=== PATIENT | male | born 1960 | race Caucasian/White ===

== ENCOUNTER 2021-09-08 08:37 | Observation (INO) | payer OTHER ==
[~2021-09-08] VITALS: Ht 170.2 cm; Wt 80.0 kg
--- NOTE | 2021-09-08 09:19 | PHYS DOC ---
General Adult EDM: Chief Complaint: DIZZY/LIGHT HEADED HPI: HPI: Patient is a 61 year old male with history of HTN, HLD, recent Covid infection on 08/22 (ended isolation on 08/30) who presents with vertigo. Had a sensation of room spinning when he woke up at approximately 10:30 PM last night. Has been constant since. Has worsened with head movements. He states that he has had several months of diplopia, and has seen an optometri st for this in his home state of [place]. 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 States he is also had drooping of his left eyelid for many years, but has been worse over the past 4 months. Denies speech difficulty, numbness, upper/lower extremity weakness, or coordination difficulty. States he does have a hoarse voice, but attributes this to his recent Covid infection and states that his voice has been hoarse for many years. He is a smoker. No history of atrial fibrillation. Denies having any imaging of his head since onset of his double vision. Review of Systems: Review of Systems: Constitutional: Denies fever or chills. [] Eyes: Denies change in visual acuity. [] HENT: Denies nasal congestion or sore throat. [] Respiratory: Denies cough or shortness of breath. [] Cardiovascular: Denies chest pain or edema. [] GI: Denies abdominal pain, nausea, vomiting, bloody stools or diarrhea. [] : Denies dysuria. [] Musculoskeletal: Denies back pain or joint pain. [] Integument: Denies rash. [] Neurologic: Reports double vision, vertigo. Endocrine: Denies polyuria or polydipsia. [] Lymphatic: Denies swollen glands. [] Psychiatric: Denies depression or anxiety. [] Heart Score: C/O Chest Pain: No Risk Factors: Risk Factors: DM, Current or recent (<one month) smoker, HTN, HLP, family history of CAD, obesity. Risk Scores: Score 0 - 3: 2.5% MACE over next 6 weeks - Discharge Home Score 4 - 6: 20.3% MACE over next 6 weeks - Admit for Clinical Observation Score 7 - 10: 72.7% MACE over next 6 weeks - Early Invasive Strategies Physical Exam: PE: Constitutional: Well developed, well nourished, no acute distress, non-toxic appearance. [] HENT: Normocephalic, atraumatic, Eyes: conjunctiva normal, no discharge. [] Neck: Normal range of motion, no tenderness, supple, no stridor. [] Cardiovascular:Heart rate regular rhythm, no murmur [] Lungs & Thorax: Bilateral breath sounds clear to auscultation [] Abdomen: Bowel sounds normal, soft, no tenderness, no masses, no pulsatile masses. [] Skin: Warm, dry, no erythema, no rash. [] Back: No tenderness, no CVA tenderness. [] Extremities: No tenderness, no cyanosis, no clubbing, ROM intact, no edema. [] Neurologic: Alert, oriented to person and place. Stated the month is July (it is August). Correctly stated his age. Follow simple commands. Pupils equal, reactive to light. Approximately 3 mm bilaterally. No afferent pupillary defect. Left-sided ptosis noted. Smile grossly symmetric. Visual krishnamurthy intact. With extraocular movements his right eye does not track upwards, and disconjugate gaze is obvious. No limb ataxia noted. No drift. Sensation intact bilaterally. No dysarthria or dysphagia. No neglect. NIH = 1 (incorrect month) Psychologic: Affect normal, judgement normal, mood normal. [] EKG: EKG: Sinus rhythm. Rate 67. Normal intervals. Normal axis. No ischemic changes.[] Radiology/Procedures: Radiology/Procedures: [facility] [address] [place], [place] [id number] IMAGING REPORT Signed PATIENT: HERBERT GUIDRY ACCOUNT: [id number] : 1960 LOCATION: ER AGE: 61 SEX: M EXAM STATUS: REG ER ORD. PHYSICIAN: DAR MCELROY MD REASON: recent covid, left sided ptosis PROCEDURE: CHEST AP ONLY EXAM: CHEST 1 VIEW History: recent covid COMPARISON: None available. TECHNIQUE: Single portable radiograph of the chest FINDINGS: The cardiac silhouette is unremarkable. The lungs are clear bilaterally. The costophrenic sulci are clear and well demarcated. IMPRESSION: No radiographic evidence of an acute cardiopulmonary process. Electronically signed by: Deng Holman MD (09/08/2021 9:27 AM) [id number] DICTATED and SIGNED BY: DENG HOLMAN MD DATE: 09/08/21 [id number] [] [facility] [address] [place] [address] IMAGING REPORT Signed PATIENT: HERBERT GUIDRY ACCOUNT: [id number] : 1960 LOCATION: ER AGE: 61 SEX: M EXAM STATUS: REG ER ORD. PHYSICIAN: DAR MCELROY MD REASON: vertigo, diplopia, disconjugate gaze PROCEDURE: CT ANGIOGRAPHY HEAD AND NECK Examination: CT angiography head and neck with IV contrast COMPARISON:CT head same day exam History: Vertebral, diplopia, disconjugate gaze. TECHNIQUE: Axial CT angiographic images of the head and neck were performed with IV contrast. Coronal and sagittal 3-D MIP reformats are performed. 3-D Vol umetric reformats of the carotids and [place] of [place] were performed. Exposure: One or more of the following individualized dose reduction techniques were utilized for this examination: 1. Automated exposure control 2. Adjustment of the mA and/or kV according to patient size 3. Use of iterative reconstruction technique Stenosis calculations for CT, MR, and conventional angiography are based upon measurements of the distal ICA diameter in accordance with the NASCET methodology. Stenosis calculations for carotid ultrasound studies are derived from validated velocity criteria which are known to correlate with the NASCET methodology. FINDINGS: The origin of the great vessels from the arch of the aorta grossly appears unremarkable. The bilateral common carotid arteries, internal carotid arteries are patent. Moderate atherosclerotic calcifications identified in the bilateral cavernous and petrous portions of the left carotid artery. Mild vascular calcification identified in the left carotid bulb and proximal internal carotid artery. The bilateral middle cerebral arteries, right anterior cerebral artery is patent. Anterior communicating artery is patent. The left A1 and A2 segments of anterior cerebral artery is thin and hypoplastic. The left vertebral artery is patent. The right vertebral artery appears thin is hypoplastic/congenital thin distal to the right posterior inferior cerebellar artery. The basilar artery is patent. The left posterior cerebral artery and superior cerebellar artery appear to have a common origin and are very thin.. . The right posterior cerebral artery is patent. The bilateral paranasal sinuses, mastoid air cells are clear. Moderate degenerative changes cervical spine IMPRESSION: 1. Congenital findings as described above. No obvious occlusion is evident. 2. Consider MRI for given symptoms for better evaluation. Electronically signed by: Deng Holman MD (09/08/2021 11:26 AM) [id number] DICTATED and SIGNED BY: DENG HOLMAN MD DATE: 09/08/21 [id number] Course & Med Decision Making: Course & Med Decision Making Pertinent Labs and Imaging studies reviewed. (See chart for details) Patient is 61-year-old male with history of HTN, HLD, tobacco abuse who presents with acute onset of vertigo last night. Has been accompanied by left-sided ptosis, and diplopia for the past several months. Obvious disconjugate gaze with a right-sided upper gaze palsy noted on examination. Concern for posterior circulation stroke, mass potentially causing his symptoms of central vertigo. CTA head and neck ordered. Patient is not a TPA candidate due to the chronicity of his complaints. --- CT and CTA without acute findings, but given his bulbar symptoms and vertigo still have a high suspicion for posterior circulation stroke. MRI ordered and will discuss admission with hospitalist. Routine neuro consult placed. [id number] Humaira Disclaimer: Humaira Disclaimer: This electronic medical record was generated, in whole or in part, using a voice recognition dictation system. Departure Departure Impression: Primary Impression: Vertigo Additional Impressions: Diplopia Ptosis, left Disposition: ADMITTED INPATIENT Admitting Physician: MARTINE Germain) Condition: STABLE DAR MCELROY MD Sep 08, 2021 09:19
--- NOTE | 2021-09-08 09:30 | RAD ---
EXAM: CHEST 1 VIEW History: recent covid COMPARISON: None available. TECHNIQUE: Single portable radiograph of the chest FINDINGS: The cardiac silhouette is unremarkable. The lungs are clear bilaterally. The costophrenic sulci are clear and well demarcated. IMPRESSION: No radiographic evidence of an acute cardiopulmonary process. Electronically signed by: Deng Holman MD (09/08/2021 9:27 AM) [id number]
[2021-09-08 09:41] LABS: BASO % 0 % (0-3); EOS % 0 % (0-3); HEMATOCRIT 43.9 % (39.0-53.0); HEMOGLOBIN 15.1 g/dL (13.0-17.5); LYMPH # 0.7 x10^3/uL (1.0-4.8); LYMPH % 8 % (24-48); MEAN CORPUSCULAR HEMOGLOBIN 33 pg (25-35); MEAN CORPUSCULAR HGB CONC 34 g/dL (31-37); MEAN CORPUSCULAR VOLUME 96 fL (79-100); MONO # 0.5 x10^3/uL (0.0-1.1); MONO % 5 % (0-9); NEUT # 8.6 x10^3/uL (1.8-7.7); NEUT % 87 % (31-73); PLATELET COUNT 233 x10^3/uL (140-400); RED BLOOD COUNT 4.57 x10^6/uL (4.30-5.70); RED CELL DISTRIBUTION WIDTH 13.1 % (11.5-14.5); WHITE BLOOD COUNT 9.8 x10^3/uL (4.0-11.0)
[2021-09-08 09:55] LABS: CALCIUM 8.5 mg/dL (8.5-10.1); GFR 75.5; POTASSIUM 4.3 mmol/L (3.5-5.1)
[2021-09-08 10:00] LABS: ALBUMIN 3.3 g/dL (3.4-5.0); ALBUMIN/GLOBULIN RATIO 0.9 (1.0-1.7); TOTAL BILIRUBIN 0.4 mg/dL (0.2-1.0); TOTAL PROTEIN 6.8 g/dL (6.4-8.2)
[2021-09-08] MEDS ORDERED: IOHEXOL 300 MG/ML 100ML VIAL. IV ONE (10:00)
[2021-09-08] MEDS ORDERED: ONDANSETRON PF 4 MG/2 ML VIAL. IVP ONE (10:00)
[2021-09-08] MEDS ORDERED: CONTRAST GIVEN. MC PRN (10:15)
--- NOTE | 2021-09-08 10:50 | RAD ---
CT HEAD INDICATION: vertigo, diplopia, disconjugate gaze COMPARISON: None Available. Exposure: One or more of the following individualized dose reduction techniques were utilized for thi s examination: 1. Automated exposure control 2. Adjustment of the mA and/or kV according to patient size 3. Use of iterative reconstruction technique TECHNIQUE: 5 mm contiguous axial images were obtained from the skull base to the vertex in both bone and soft tissue algorithm. FINDINGS: No abnormal attenuation within the brain parenchyma. No evidence of acute intracranial hemorrhage. No extra-axial fluid collections. No mass effect or midline shift. Ventricular size is appropriate. Basal cisterns are patent. No fractures identified.Scherer-white differentiation is preserved.Globes and orbits are within normal l imits. Paranasal sinuses and mastoid air cells are clear. IMPRESSION: No acute intracranial findings. Electronically signed by: Deng Holman MD (09/08/2021 10:48 AM) [id number]
--- NOTE | 2021-09-08 11:29 | RAD ---
Examination: CT angiography head and neck with IV contrast COMPARISON:CT head same day exam History: Vertebral, diplopia, disconjugate gaze. TECHNIQUE: Axial CT angiographic images of the head and neck were performed with IV contrast. Coronal and sagittal 3-D MIP reformats are performed. 3-D Volumetric reformats of the carotids and [place] of [place] were performed. Exposure: One or more of the following individualized dose reduction techniques were utilized for thi s examination: 1. Automated exposure control 2. Adjustment of the mA and/or kV according to patient size 3. Use of iterative reconstruction technique Stenosis calculations for CT, MR, and conventional angiography are based upon measurements of the dis nicole ICA diameter in accordance with the NASCET methodology. Stenosis calculations for carotid ultraso und studies are derived from validated velocity criteria which are known to correlate with the NASCET methodology. FINDINGS: The origin of the great vessels from the arch of the aorta grossly appears unremarkable. The bilatera l common carotid arteries, internal carotid arteries are patent. Moderate atherosclerotic calcificati ons identified in the bilateral cavernous and petrous portions of the left carotid artery. Mild vascu lar calcification identified in the left carotid bulb and proximal internal carotid artery. The bilat eral middle cerebral arteries, right anterior cerebral artery is patent. Anterior communicating arter y is patent. The left A1 and A2 segments of anterior cerebral artery is thin and hypoplastic. The left vertebral artery is patent. The right vertebral artery appears thin is hypoplastic/congenit al thin distal to the right posterior inferior cerebellar artery. The basilar artery is patent. The l eft posterior cerebral artery and superior cerebellar artery appear to have a common origin and are v peg thin.. . The right posterior cerebral artery is patent. The bilateral paranasal sinuses, mastoid air cells are clear. Moderate degenerative changes cervical spine IMPRESSION: 1. Congenital findings as described above. No obvious occlusion is evident. 2. Consider MRI for given symptoms for better evaluation. Electronically signed by: Deng Holman MD (09/08/2021 11:26 AM) [id number]
--- NOTE | 2021-09-08 13:08 | EKG ---
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
--- NOTE | 2021-09-08 16:00 | NUR ---
Patient COVID recovered per report. Tested positive 08-22-21, Received both Pfizer vaccinations in February and March. No covid symptoms at this time.
--- NOTE | 2021-09-08 16:46 | RAD ---
MRI BRAIN WITHOUT CONTRAST History: Vertigo, diplopia, ptosis, disconjugate gaze. Comparison: CTA head and neck, earlier same day. Technique: Multiplanar multiple pulse sequence images of the brain were obtained without contrast. Findings: There is no restricted diffusion. No intraparenchymal T2 signal abnormality is identified. There is n o midline shift or mass effect. No extra-axial fluid collection or evidence of intraparenchymal hemor rhage. Ventricles and sulci are normal for patient age. Visualized vascular flow voids are intact. Globes and orbits are normal. The mastoid air cells are clear. Mild mucosal thickening left maxillary sinus. No air-fluid level. IMPRESSION: There is no acute intracranial abnormality. Electronically signed by: Edilberto Mcleod MD (09/08/2021 4:44 PM) [facility]
[2021-09-08] MEDS ORDERED: ACETAMINOPHEN 325 MG TABLET. PO PRN (17:15)
[2021-09-08] MEDS ORDERED: ONDANSETRON PF 4 MG/2 ML VIAL. IVP PRN (17:15)
[2021-09-08] MEDS ORDERED: ELECTROLYTE (NON-ICU) PROTOCOL. MC PRN (17:15)
[2021-09-08] MEDS ORDERED: MECLIZINE HCL 12.5 MG TABLET. PO PRN (17:15)
[2021-09-08] MEDS ORDERED: CALCIUM CARBONATE 500 MG TAB.CHEW PO PRN (17:15)
[2021-09-08] MEDS ORDERED: oxyCODONE/APAP 5/325 1 TAB TABLET PO PRN ×2 (17:15)
[2021-09-08] MEDS ORDERED: oxyCODONE IR 5 MG TABLET PO PRN (17:15)
[2021-09-08] MEDS ORDERED: ZOLPIDEM 5 MG TABLET. PO PRN (17:15)
[2021-09-08 19:00] VITALS: BP 152/71
--- NOTE | 2021-09-08 19:58 | PDOC1 ---
History and Physical Date of Service: DOS: DATE: 09/08/21 TIME: 19:50 Chief Complaint: Problems: (1) Ptosis, left (2) Vertigo (3) Diplopia Chief Complain: Dizziness History of Present Illness: HPI: This patient is a 61-year-old male presented to the emergency department today due to 1 day history of dizziness and vertigo-like symptoms. 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 He said he first noticed the dizziness around 9-10 last night. He sleeps in the cabin of his truck. Initially did not think much of the dizziness and just tried to go to bed last night. He said the dizziness persisted most of the night. He however says it was also intermittent and there at times she would feel better and other times he would roll over and feel very dizzy again. Recent having Covid positive on August 22. Patient also has left ptosis. Also multiple months of diplopia that has been worsening. He sees an veterinary practitioner at his home and was actually due to follow-up in the next few days. Denying any sort of infectious symptoms including fever or chills. Denies any weakness or numbness. Past Medical/Surgical History: PMH/PSH: Hypertension hyperlipidemia Allergies: Allergies: Coded Allergies: No Known Drug Allergies (Unverified , 09/08/21) Family History: Family History: Hypertension Social History: Social History: Active daily smoker of tobacco. Denies alcohol drug use Current Medications: Current Medications Current Medications Ondansetron HCl (Zofran) 4 mg 1X ONCE IVP Last administered on 09/08/21at 10:02; Start 09/08/21 at 10:00; Stop 09/08/21 at 10:01; Status DC Iohexol (Omnipaque 300 Mg/ml) 75 ml 1X ONCE IV Last administered on 09/08/21at 10:16; Start 09/08/21 at 10:00; Stop 09/08/21 at 10:04; Status DC Info (CONTRAST GIVEN -- Rx MONITORING) 1 each PRN DAILY PRN MC SEE COMMENTS; Start 09/08/21 at 10:15; Stop 09/10/21 at 10:14 Ondansetron HCl (Zofran) 4 mg PRN Q6HRS PRN IVP NAUSEA/VOMITING Last administered on 09/08/21at 18:47; Start 09/08/21 at 17:15 Calcium Carbonate/ Glycine (Tums) 500 mg PRN Q3HRS PRN PO UPSET STOMACH; Start 09/08/21 at 17:15 Zolpidem Tartrate (Ambien) 5 mg PRN QHS PRN PO INSOMNIA, MAY REPEAT IN 1HR; St art 09/08/21 at 17:15 Info (Non-Icu Electrolyte Protocol) 1 ea PRN DAILY PRN MC SEE COMMENTS; Start 09/08/21 at 17:15 Oxycodone HCl (Roxicodone) 5 mg PRN Q3HRS PRN PO BREAKTHROUGH PAIN; Start 09/08/21 at 17:15 Oxycodone/ Acetaminophen (Percocet 5/325) 1 tab PRN Q4HRS PRN PO MILD PAIN, 1ST CHOICE; Start 09/08/21 at 17:15 Oxycodone/ Acetaminophen (Percocet 5/325) 2 tab PRN Q4HRS PRN PO MODERATE PAIN, SEVERE PAIN; Start 09/08/21 at 17:15 Acetaminophen (Tylenol) 650 mg PRN Q6HRS PRN PO Headaches, Temp > 101.5F; Start 09/08/21 at 17:15 Senna/Docusate Sodium (Senna Plus) 1 tab BID PO ; Start 09/08/21 at 21:00 Heparin Sodium (Porcine) (Heparin Sodium) 5,000 unit Q8HRS SQ ; Start 09/08/21 at 22:00 Meclizine HCl (Antivert) 12.5 mg PRN Q6HRS PRN PO DIZZINESS; Start 09/08/21 at 17:15 ROS: Review of Systems Review of System Unless noted in HPI a 14 point review of systems was negative Physical Exam: Vital Signs: Vital Signs Date Time Temp Pulse Resp B/P (MAP) Pulse Ox O2 Delivery O2 Flow Rate FiO2 09/08/21 13:17 60 22 137/75 (95) 96 Room Air 09/08/21 08:48 98.2 98.2 Physcial Exam: GEN: No apparent distress. Alert and oriented HEENT: Normal cephalic, atraumatic, external auditory canals are patent EYES: Left ptosis. Unable to elicit any nystagmus MUSCULOSKELETAL: Well developed , well nourished, good range of motion ENDOCRINE: No thyromegaly was palpated LYMPHATICS: No cervical chain or axillary nodes were noted HEMATOPOIETIC: No bruising NECK: Supple, no JVD, no thyromegaly was noted LUNGS: Clear to auscultation in all lung krishnamurthy without rhonchi or wheezing HEART: RRR, S!, S2 present. Peripheral pulses intact, no obvious murmurs noted ABDOMEN: Soft, nontender. Positive bowel sounds, no organomegaly, normal bowel sounds EXTREMITIES: Without clubbing, cyanosis, or edema. Pedal pulses intact. Negative Homans sign NEUROLOGIC: Normal speech and tone AAOx3. Moves all extremities. Ptosis of left eyelid. Normal speech PSYCHIATRIC: Normal affect, normal mood. Stable SKIN: No ulcerations or rashes, good skin turgor, no jaundice VASCULAR: Good capillary refill, neurovascular bundle appears to be intact Labs: Labs: Laboratory Tests Test 09/08/21 09:20 09/08/21 09:28 White Blood Count 9.8 x10^3/uL (4.0-11.0) Red Blood Count 4.57 x10^6/uL (4.30-5.70) Hemoglobin 15.1 g/dL (13.0-17.5) Hematocrit 43.9 % (39.0-53.0) Mean Corpuscular Volume 96 fL (79-100) Mean Corpuscular Hemoglobin 33 pg (25-35) Mean Corpuscular Hemoglobin Concent 34 g/dL (31-37) Red Cell Distribution Width 13.1 % (11.5-14.5) Platelet Count 233 x10^3/uL (140-400) Neutrophils (%) (Auto) 87 % (31-73) Lymphocytes (%) (Auto) 8 % (24-48) Monocytes (%) (Auto) 5 % (0-9) Eosinophils (%) (Auto) 0 % (0-3) Basophils (%) (Auto) 0 % (0-3) Neutrophils # (Auto) 8.6 x10^3/uL (1.8-7.7) Lymphocytes # (Auto) 0.7 x10^3/uL (1.0-4.8) Monocytes # (Auto) 0.5 x10^3/uL (0.0-1.1) Eosinophils # (Auto) 0.0 x10^3/uL (0.0-0.7) Basophils # (Auto) 0.0 x10^3/uL (0.0-0.2) Sodium Level 141 mmol/L (136-145) Potassium Level 4.3 mmol/L (3.5-5.1) Chloride Level 107 mmol/L (98-107) Carbon Dioxide Level 25 mmol/L (21-32) Anion Gap 9 (6-14) Blood Urea Nitrogen 14 mg/dL (8-26) Creatinine 1.0 mg/dL (0.7-1.3) Estimated GFR (Cockcroft-Gault) 75.5 BUN/Creatinine Ratio 14 (6-20) Glucose Level 135 mg/dL (70-99) Calcium Level 8.5 mg/dL (8.5-10.1) Total Bilirubin 0.4 mg/dL (0.2-1.0) Aspartate Amino Transf (AST/SGOT) 35 U/L (15-37) Alanine Aminotransferase (ALT/SGPT) 68 U/L (16-63) Alkaline Phosphatase 98 U/L (46-116) Total Protein 6.8 g/dL (6.4-8.2) Albumin 3.3 g/dL (3.4-5.0) Albumin/Globulin Ratio 0.9 (1.0-1.7) SARS-CoV-2 Antigen (Rapid) Negative (NEGATIVE) Laboratory Tests Test 09/08/21 09:20 09/08/21 09:28 White Blood Count 9.8 x10^3/uL (4.0-11.0) Red Blood Count 4.57 x10^6/uL (4.30-5.70) Hemoglobin 15.1 g/dL (13.0-17.5) Hematocrit 43.9 % (39.0-53.0) Mean Corpuscular Volume 96 fL (79-100) Mean Corpuscular Hemoglobin 33 pg (25-35) Mean Corpuscular Hemoglobin Concent 34 g/dL (31-37) Red Cell Distribution Width 13.1 % (11.5-14.5) Platelet Count 233 x10^3/uL (140-400) Neutrophils (%) (Auto) 87 % (31-73) Lymphocytes (%) (Auto) 8 % (24-48) Monocytes (%) (Auto) 5 % (0-9) Eosinophils (%) (Auto) 0 % (0-3) Basophils (%) (Auto) 0 % (0-3) Neutrophils # (Auto) 8.6 x10^3/uL (1.8-7.7) Lymphocytes # (Auto) 0.7 x10^3/uL (1.0-4.8) Monocytes # (Auto) 0.5 x10^3/uL (0.0-1.1) Eosinophils # (Auto) 0.0 x10^3/uL (0.0-0.7) Basophils # (Auto) 0.0 x10^3/uL (0.0-0.2) Sodium Level 141 mmol/L (136-145) Potassium Level 4.3 mmol/L (3.5-5.1) Chloride Level 107 mmol/L (98-107) Carbon Dioxide Level 25 mmol/L (21-32) Anion Gap 9 (6-14) Blood Urea Nitrogen 14 mg/dL (8-26) Creatinine 1.0 mg/dL (0.7-1.3) Estimated GFR (Cockcroft-Gault) 75.5 BUN/Creatinine Ratio 14 (6-20) Glucose Level 135 mg/dL (70-99) Calcium Level 8.5 mg/dL (8.5-10.1) Total Bilirubin 0.4 mg/dL (0.2-1.0) Aspartate Amino Transf (AST/SGOT) 35 U/L (15-37) Alanine Aminotransferase (ALT/SGPT) 68 U/L (16-63) Alkaline Phosphatase 98 U/L (46-116) Total Protein 6.8 g/dL (6.4-8.2) Albumin 3.3 g/dL (3.4-5.0) Albumin/Globulin Ratio 0.9 (1.0-1.7) SARS-CoV-2 Antigen (Rapid) Negative (NEGATIVE) Assessment/Plan Assessment/Plan Dizziness secondary to BPPV? Vertigo, diplopia, left eyelid ptosis. Active smoker -1 day history of acute onset dizziness -Present emergency department here today where dizziness is still persisting. Head imaging including brain MRI unremarkable -Patient reports dizziness is intermittent -Admit with neuro consult -We will try as needed meclizine to see if any improvement -12 minutes tobacco cessation counseling provided to the patient -DVT prophylaxis -Cardiac diet -Home meds resumed as indicated Justifications for Admission Other Justification JOSE JACKSON MD Sep 08, 2021 19:58
[2021-09-08] MEDS: SENNOSIDES/DOCUSATE 8.6/50MG TABLET. PO SCH (21:00)
[2021-09-08] MEDS: HEPARIN for SUB-Q USE 5,000 UNIT/ML VIAL. SQ SCH (22:58)
[2021-09-08 23:00] VITALS: BP 147/72
[2021-09-08 23:26] LABS: BILIRUBIN,URINE NEGATIVE (NEG); CLARITY,URINE CLEAR; COLOR,URINE YELLOW; NITRITE,URINE NEGATIVE (NEG); PROTEIN,URINE NEGATIVE (NEG-TRACE)
[2021-09-08 23:33] LABS: BARBITURATES NEG (NEG); BENZODIAZEPINES NEG (NEG); CANNABINOIDS NEG (NEG); COCAINE NEG (NEG); METHADONE NEG (NEG); OPIATES NEG (NEG); PHENCYCLIDINE NEG (NEG)
[2021-09-08 23:34] LABS: AMPHETAMINE/METHAMPHETAMINE NEG (NEG)
[2021-09-08 23:48] LABS: BACTERIA,URINE 0 /HPF (0-FEW); RBC,URINE 0 /HPF (0-2); WBC,URINE OCC /HPF (0-4)
[2021-09-09 03:16] VITALS: BP 122/75
[2021-09-09] MEDS: HEPARIN for SUB-Q USE 5,000 UNIT/ML VIAL. SQ SCH (06:27)
[2021-09-09 07:00] VITALS: BP 157/75
[2021-09-09] MEDS ORDERED: FLU VACC QUAD 21-22 (6MOS+) PF 0.5 ML SYRINGE. VAX IM ONE (09:00)
[2021-09-09] MEDS: SENNOSIDES/DOCUSATE 8.6/50MG TABLET. PO SCH (09:02)
--- NOTE | 2021-09-09 10:19 | PDOC2 ---
NEUROLOGY CONSULT Date of Service DOS: DATE: 09/09/21 TIME: 10:11 Reason for Consult Reason for Consult: Vertigo Referring Physician Referring Physician: Dr. 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 Symptoms are worse with head to the right. He has chronic tinnitus and saw ear nose and throat in his home in [place]. They thought about a hearing aid, but symptoms were not severe. He has had vertigo in the past. He also has had diplopia for the last several months. His eye doctor told him he had an oculomotor palsy and needed to see a neurologist. Patient denies weakness elsewhere such as dysarthria, dysphagia, or trouble breathing. He is feeling better this morning. 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 Current Medications Current Medications Current Medications Ondansetron HCl (Zofran) 4 mg 1X ONCE IVP Last administered on 09/08/21at 10:02; Start 09/08/21 at 10:00; Stop 09/08/21 at 10:01; Status DC Iohexol (Omnipaque 300 Mg/ml) 75 ml 1X ONCE IV Last administered on 09/08/21at 10:16; Start 09/08/21 at 10:00; Stop 09/08/21 at 10:04; Status DC Info (CONTRAST GIVEN -- Rx MONITORING) 1 each PRN DAILY PRN MC SEE COMMENTS; Start 09/08/21 at 10:15; Stop 09/10/21 at 10:14 Ondansetron HCl (Zofran) 4 mg PRN Q6HRS PRN IVP NAUSEA/VOMITING Last administered on 09/08/21at 18:47; Start 09/08/21 at 17:15 Calcium Carbonate/ Glycine (Tums) 500 mg PRN Q3HRS PRN PO UPSET STOMACH; Start 09/08/21 at 17:15 Zolpidem Tartrate (Ambien) 5 mg PRN QHS PRN PO INSOMNIA, MAY REPEAT IN 1HR Last administered on 09/08/21at 22:55; Start 09/08/21 at 17:15 Info (Non-Icu Electrolyte Protocol) 1 ea PRN DAILY PRN MC SEE COMMENTS; Start 09/08/21 at 17:15 Oxycodone HCl (Roxicodone) 5 mg PRN Q3HRS PRN PO BREAKTHROUGH PAIN; Start 09/08/21 at 17:15 Oxycodone/ Acetaminophen (Percocet 5/325) 1 tab PRN Q4HRS PRN PO MILD PAIN, 1ST CHOICE; Start 09/08/21 at 17:15 Oxycodone/ Acetaminophen (Percocet 5/325) 2 tab PRN Q4HRS PRN PO MODERATE PAIN, SEVERE PAIN; Start 09/08/21 at 17:15 Acetaminophen (Tylenol) 650 mg PRN Q6HRS PRN PO Headaches, Temp > 101.5F Last administered on 09/08/21at 21:06; Start 09/08/21 at 17:15 Senna/Docusate Sodium (Senna Plus) 1 tab BID PO Last administered on 09/09/21at 09:02; Start 09/08/21 at 21:00 Heparin Sodium (Porcine) (Heparin Sodium) 5,000 unit Q8HRS SQ Last administered on 09/09/21at 06:27; Start 09/08/21 at 22:00 Meclizine HCl (Antivert) 12.5 mg PRN Q6HRS PRN PO DIZZINESS Last administered on 09/08/21at 21:00; Start 09/08/21 at 17:15 Influenza Virus Vaccine Quadrival (Flulaval Quad [id number] Syringe) 0.5 ml ONCE ONCE VAX IM Last administered on 09/09/21at 09:13; Start 09/09/21 at 09:00; Stop 09/09/21 at 09:01; Status DC Allergies Allergies: Coded Allergies: No Known Drug Allergies (Unverified , 09/08/21) ROS Review of System Negative for fever, chills, weight loss, shortness of breath, chest pain, indigestion, hematochezia, melena, and dysuria. Full 14-point review of systems is negative. Physical Exam Physical Examination General: Well-developed, well-nourished, white male, in no acute distress HEENT: Normocephalic andatraumatic. Tympanic membranes clear.Temporal arteriespulsatile and nontender. Neck: Supple without bruit, no meningismus Musculoskeletal: Stability:see neurologic. Gait exam:see neurologic. Tone:see neurologic.Strength:see neurologic. Neurological: Mental Status:intact, orientation, memory, attention span/concentration, language, fund of knowledge normal. Cranial Nerves:Pupils equal and reactive to light, visual krishnamurthy are full to confrontation. There is ptosis of the left eye and poor abduction of the right eye. Facial sensation is normal. There is no facial asymmetry. Vestibulo-ocular reflex is intact. Does develop some subjective vertigo with Francisco-Hallpike to the right, no nystagmus elicited. Palate elevates and tongue protrudes in midline. All other cranial related problems are negative except as mentioned before.Reflexes:2+ and symmetric with flexor plantar responses. Motor:5/5 strength with normal tone and bulk. Coordination:Finger-nose finger and [id number] testing are normal. Rapid alternating movements and fine finger movements are intact. Gait:Normal, including tandem. Sensory:Normal pinprick, vibration, light touch, proprioception. Vitals VITALS Vital Signs Date Time Temp Pulse Resp B/P (MAP) Pulse Ox O2 Delivery O2 Flow Rate FiO2 09/09/21 07:00 98.0 63 18 157/75 (102) 93 98.0 09/09/21 03:16 Room Air Labs Labs Laboratory Tests Test 09/08/21 09:20 09/08/21 09:28 09/08/21 22:50 White Blood Count 9.8 x10^3/uL (4.0-11.0) Red Blood Count 4.57 x10^6/uL (4.30-5.70) Hemoglobin 15.1 g/dL (13.0-17.5) Hematocrit 43.9 % (39.0-53.0) Mean Corpuscular Volume 96 fL (79-100) Mean Corpuscular Hemoglobin 33 pg (25-35) Mean Corpuscular Hemoglobin Concent 34 g/dL (31-37) Red Cell Distribution Width 13.1 % (11.5-14.5) Platelet Count 233 x10^3/uL (140-400) Neutrophils (%) (Auto) 87 % (31-73) Lymphocytes (%) (Auto) 8 % (24-48) Monocytes (%) (Auto) 5 % (0-9) Eosinophils (%) (Auto) 0 % (0-3) Basophils (%) (Auto) 0 % (0-3) Neutrophils # (Auto) 8.6 x10^3/uL (1.8-7.7) Lymphocytes # (Auto) 0.7 x10^3/uL (1.0-4.8) Monocytes # (Auto) 0.5 x10^3/uL (0.0-1.1) Eosinophils # (Auto) 0.0 x10^3/uL (0.0-0.7) Basophils # (Auto) 0.0 x10^3/uL (0.0-0.2) Sodium Level 141 mmol/L (136-145) Potassium Level 4.3 mmol/L (3.5-5.1) Chloride Level 107 mmol/L (98-107) Carbon Dioxide Level 25 mmol/L (21-32) Anion Gap 9 (6-14) Blood Urea Nitrogen 14 mg/dL (8-26) Creatinine 1.0 mg/dL (0.7-1.3) Estimated GFR (Cockcroft-Gault) 75.5 BUN/Creatinine Ratio 14 (6-20) Glucose Level 135 mg/dL (70-99) Calcium Level 8.5 mg/dL (8.5-10.1) Total Bilirubin 0.4 mg/dL (0.2-1.0) Aspartate Amino Transf (AST/SGOT) 35 U/L (15-37) Alanine Aminotransferase (ALT/SGPT) 68 U/L (16-63) Alkaline Phosphatase 98 U/L (46-116) Total Protein 6.8 g/dL (6.4-8.2) Albumin 3.3 g/dL (3.4-5.0) Albumin/Globulin Ratio 0.9 (1.0-1.7) SARS-CoV-2 Antigen (Rapid) Negative (NEGATIVE) Urine Collection Type Unknown Urine Color Yellow Urine Clarity Clear Urine pH 7.0 (<5.0-8.0) Urine Specific [place] 1.025 (1.000-1.030) Urine Protein Negative mg/dL (NEG-TRACE) Urine Glucose (UA) Negative mg/dL (NEG) Urine Ketones (Stick) Negative mg/dL (NEG) Urine Blood Negative (NEG) Urine Nitrite Negative (NEG) Urine Bilirubin Negative (NEG) Urine Urobilinogen Dipstick 1.0 mg/dL (0.2 mg/dL) Urine Leukocyte Esterase Negative (NEG) Urine RBC 0 /HPF (0-2) Urine WBC Occ /HPF (0-4) Urine Squamous Epithelial Cells Occ /LPF Urine Bacteria 0 /HPF (0-FEW) Urine Mucus Slight /LPF Urine Opiates Screen Neg (NEG) Urine Methadone Screen Neg (NEG) Urine Barbiturates Neg (NEG) Urine Phencyclidine Screen Neg (NEG) Urine Amphetamine/Methamphetamine Neg (NEG) Urine Benzodiazepines Screen Neg (NEG) Urine Cocaine Screen Neg (NEG) Urine Cannabinoids Screen Neg (NEG) Urine Ethyl Alcohol Neg (NEG) Laboratory Tests Test 09/08/21 22:50 Urine Collection Type Unknown Urine Color Yellow Urine Clarity Clear Urine pH 7.0 (<5.0-8.0) Urine Specific [place] 1.025 (1.000-1.030) Urine Protein Negative mg/dL (NEG-TRACE) Urine Glucose (UA) Negative mg/dL (NEG) Urine Ketones (Stick) Negative mg/dL (NEG) Urine Blood Negative (NEG) Urine Nitrite Negative (NEG) Urine Bilirubin Negative (NEG) Urine Urobilinogen Dipstick 1.0 mg/dL (0.2 mg/dL) Urine Leukocyte Esterase Negative (NEG) Urine RBC 0 /HPF (0-2) Urine WBC Occ /HPF (0-4) Urine Squamous Epithelial Cells Occ /LPF Urine Bacteria 0 /HPF (0-FEW) Urine Mucus Slight /LPF Urine Opiates Screen Neg (NEG) Urine Methadone Screen Neg (NEG) Urine Barbiturates Neg (NEG) Urine Phencyclidine Screen Neg (NEG) Urine Amphetamine/Methamphetamine Neg (NEG) Urine Benzodiazepines Screen Neg (NEG) Urine Cocaine Screen Neg (NEG) Urine Cannabinoids Screen Neg (NEG) Urine Ethyl Alcohol Neg (NEG) Images Images CT HEAD INDICATION: vertigo, diplopia, disconjugate gaze COMPARISON: None Available. Exposure: One or more of the following individualized dose reduction techniques were utilized for this examination: 1. Automated exposure control 2. Adjustment of the mA and/or kV according to patient size 3. Use of iterative reconstruction technique TECHNIQUE: 5 mm contiguous axial images were obtained from the skull base to the vertex in both bone and soft tissue algorithm. FINDINGS: No abnormal attenuation within the brain parenchyma. No evidence of acute intracranial hemorrhage. No extra-axial fluid collections. No mass effect or midline shift. Ventricular size is appropriate. Basal cisterns are patent. No fractures identified.Scherer-white differentiation is preserved.Globes and orbits are within normal limits. Paranasal sinuses and mastoid air cells are clear. IMPRESSION: No acute intracranial findings. CT angiography head and neck with IV contrast COMPARISON:CT head same day exam History: Vertebral, diplopia, disconjugate gaze. TECHNIQUE: Axial CT angiographic images of the head and neck were performed with IV contrast. Coronal and sagittal 3-D MIP reformats are performed. 3-D Volumetric reformats of the carotids and [place] were performed. Exposure: One or more of the following individualized dose reduction techniques were utilized for this examination: 1. Automated exposure control 2. Adjustment of the mA and/or kV according to patient size 3. Use of iterative reconstruction technique Stenosis calculations for CT, MR, and conventional angiography are based upon measurements of the distal ICA diameter in accordance with the NASCET methodology. Stenosis calculations for carotid ultrasound studies are derived from validated velocity criteria which are known to correlate with the NASCET methodology. FINDINGS: The origin of the great vessels from the arch of the aorta grossly appears unremarkable. The bilateral common carotid arteries, internal carotid arteries are patent. Moderate atherosclerotic calcifications identified in the bilateral cavernous and petrous portions of the left carotid artery. Mild vascular calci fication identified in the left carotid bulb and proximal internal carotid artery. The bilateral middle cerebral arteries, right anterior cerebral artery is patent. Anterior communicating artery is patent. The left A1 and A2 segments of anterior cerebral artery is thin and hypoplastic. The left vertebral artery is patent. The right vertebral artery appears thin is hypoplastic/congenital thin distal to the right posterior inferior cerebellar artery. The basilar artery is patent. The left posterior cerebral artery and superior cerebellar artery appear to have a common origin and are very thin.. . The right posterior cerebral artery is patent. The bilateral paranasal sinuses, mastoid air cells are clear. Moderate degenerative changes cervical spine IMPRESSION: 1. Congenital findings as described above. No obvious occlusion is evident. 2. Consider MRI for given symptoms for better evaluation. MRI BRAIN WITHOUT CONTRAST History: Vertigo, diplopia, ptosis, disconjugate gaze. Comparison: CTA head and neck, earlier same day. Technique: Multiplanar multiple pulse sequence images of the brain were obtained without contrast. Findings: There is no restricted diffusion. No intraparenchymal T2 signal abnormality is identified. There is no midline shift or mass effect. No extra-axial fluid collection or evidence of intraparenchymal hemorrhage. Ventricles and sulci are normal for patient age. Visualized vascular flow voids are intact. Globes and orbits are normal. The mastoid air cells are clear. Mild mucosal thickening left maxillary sinus. No air-fluid level. IMPRESSION: There is no acute intracranial abnormality. Assessment/Plan Assessment/Plan Impression: Right peripheral labyrinthine dysfunction, most likely labyrinthitis, does have some tinnitus, but I doubt Mnire's disease, also consider positional vertigo, but exam is not consistent with this right now. No sign of central nervous system lesion. Left oculomotor and right abducens weaknesses. MRI shows no structural lesion. I am concerned about myasthenia gravis given the fluctuating symptoms. Recommendations: Our hospital policy is against checking myasthenia serology as inpatient, patient will have to have this done in [place] with his neurologist there when he gets one Meclizine as needed, should use no more than 2 or 3 weeks at a time ENT evaluation in [place] as outpatient Okay for discharge He should not drive home, needs to fly home Thank you for letting me help with the patient's care. MARIPOSA CORRIGAN MD Sep 09, 2021 10:19
[2021-09-09] MEDS ORDERED: MECL12.582 PO (10:38)
--- NOTE | 2021-09-09 10:43 | PDOC ---
[facility] PROGRESS NOTE Date of Service DOS: DATE: 09/09/21 TIME: 10:43 Chief Complaint Chief Complaint A/P: Dizziness - secondary to BPPV and likely labyrinthitis Vertigo Diplopia Left eyelid ptosis Active smoker -counseled for 6 minutes on cessation H/o COVID 19 - repeat testing negative. Recovered Transaminitis - likely from recovering COVID 19 Plan: BPPV exercises given. F/u with neurology on d/c, prn meclizine From Neurology plan: "Our hospital policy is against checking myasthenia serology as inpatient, patient will have to have this done in [place] with his neurologist there when he gets one Meclizine as needed, should use no more than 2 or 3 weeks at a time ENT evaluation in [place] as outpatient Okay for discharge He should not drive home, needs to fly home" History of Present Illness History of Present Illness Mr Zhou is a 61-year-old male presented to the emergency department due to 1 day history of dizziness and vertigo-like symptoms. 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 He said he first noticed the dizziness around 9-10 last night. He sleeps in the cabin of his truck. Initially did not think much of the dizziness and just tried to go to bed last night. He said the dizziness persisted most of the night. He however says it was also intermittent and there at times she would feel better and other times he would roll over and feel very dizzy again. Recent having Covid positive on August 22. Repeat COVID 19 testing negative Patient also has left ptosis. Also multiple months of diplopia that has been worsening. He sees an jumpbasting facing baster at his home and was actually due to follow-up in the next few days. Denying any sort of infectious symptoms including fever or chills. Denies any weakness or numbness. Symptoms resolved with otolith repositioning via Banner-Hallpike maneuvering. Nausea improved with as needed meclizine. Discussed with neurology no driving for now should have outpatient testing for myasthenia serology. His daughter is driving from [place] to pick him up. He will be staying in his truck until he makes a flight to [place]. Vitals/I&O Vitals/I&O: Vital Signs Date Time Temp Pulse Resp B/P (MAP) Pulse Ox O2 Delivery O2 Flow Rate FiO2 09/09/21 07:00 98.0 63 18 157/75 (102) 93 98.0 09/09/21 03:16 Room Air I & O 09/08/21 09/08/21 09/09/21 15:00 23:00 07:00 Output Total 400 ml Balance -400 ml Physical Exam General: Alert, Oriented X3, Cooperative Heart: Regular rate, Normal S1, Normal S2 Lungs: Clear Abdomen: Normal bowel sounds, Soft Extremities: No clubbing, No cyanosis Skin: No rashes, No breakdown Labs Labs: Laboratory Tests Test 09/08/21 22:50 Urine Collection Type Unknown Urine Color Yellow Urine Clarity Clear Urine pH 7.0 (<5.0-8.0) Urine Specific [place] 1.025 (1.000-1.030) Urine Protein Negative mg/dL (NEG-TRACE) Urine Glucose (UA) Negative mg/dL (NEG) Urine Ketones (Stick) Negative mg/dL (NEG) Urine Blood Negative (NEG) Urine Nitrite Negative (NEG) Urine Bilirubin Negative (NEG) Urine Urobilinogen Dipstick 1.0 mg/dL (0.2 mg/dL) Urine Leukocyte Esterase Negative (NEG) Urine RBC 0 /HPF (0-2) Urine WBC Occ /HPF (0-4) Urine Squamous Epithelial Cells Occ /LPF Urine Bacteria 0 /HPF (0-FEW) Urine Mucus Slight /LPF Urine Opiates Screen Neg (NEG) Urine Methadone Screen Neg (NEG) Urine Barbiturates Neg (NEG) Urine Phencyclidine Screen Neg (NEG) Urine Amphetamine/Methamphetamine Neg (NEG) Urine Benzodiazepines Screen Neg (NEG) Urine Cocaine Screen Neg (NEG) Urine Cannabinoids Screen Neg (NEG) Urine Ethyl Alcohol Neg (NEG) Assessment and Plan Assessmemt and Plan Problems Medical Problems: (1) Diplopia Status: Acute (2) Ptosis, left Status: Acute (3) Vertigo Status: Acute Comment Review of Relevant I have reviewed the following items eren (where applicable) has been applied. Medications: Current Medications Medications (Trade) Dose Ordered Sig/Aleksander Route PRN Reason Start Time Stop Time Status Last Admin Dose Admin Ondansetron HCl (Zofran) 4 mg PRN Q6HRS PRN IVP NAUSEA/VOMITING 09/08/21 17:15 09/08/21 18:47 Zolpidem Tartrate (Ambien) 5 mg PRN QHS PRN PO INSOMNIA, MAY REPEAT IN 1HR 09/08/21 17:15 09/08/21 22:55 Acetaminophen (Tylenol) 650 mg PRN Q6HRS PRN PO Headaches, Temp > 101.5F 09/08/21 17:15 09/08/21 21:06 Senna/Docusate Sodium (Senna Plus) 1 tab BID PO 09/08/21 21:00 09/09/21 09:02 Heparin Sodium (Porcine) (Heparin Sodium) 5,000 unit Q8HRS SQ 09/08/21 22:00 09/09/21 06:27 Meclizine HCl (Antivert) 12.5 mg PRN Q6HRS PRN PO DIZZINESS 09/08/21 17:15 09/08/21 21:00 Influenza Virus Vaccine Quadrival (Flulaval Quad Syringe) 0.5 ml ONCE ONCE VAX IM 09/09/21 09:00 09/09/21 09:01 DC 09/09/21 09:13 Justifications for Admission Other Justification JOSE SHEFFIELD MD Sep 09, 2021 10:43
[2021-09-09 11:00] VITALS: BP 128/102
--- NOTE | 2021-09-09 13:09 | NUR ---
SW following. Discussed with RN, pt from home in [place], room air, regular diet, rapid COVID-19 negative. Neurology following. Discharge order for home with self care. RN advised no SW needs.
--- NOTE | 2021-09-09 14:53 | PDOC3 ---
Discharge Summary Visit Information Date of Admission: Sep 08, 2021 Date of Discharge: Sep 09, 2021 Admitting Diagnosis: Diplopia, vertigo Final Diagnosis Problems Medical Problems: (1) Diplopia Status: Acute (2) Ptosis, left Status: Acute (3) Vertigo Status: Acute Brief Hospital Course Allergies Allergies Coded Allergies Type Severity Reaction Last Updated Verified No Known Drug Allergies 09/08/21 No Vital Signs Vital Signs Date Time Temp Pulse Resp B/P (MAP) Pulse Ox O2 Delivery O2 Flow Rate FiO2 09/09/21 11:00 98.2 73 18 128/102 (111) 94 98.2 09/09/21 03:16 Room Air Lab Results Laboratory Tests Test 09/08/21 09:20 09/08/21 09:28 09/08/21 22:50 White Blood Count 9.8 x10^3/uL (4.0-11.0) Red Blood Count 4.57 x10^6/uL (4.30-5.70) Hemoglobin 15.1 g/dL (13.0-17.5) Hematocrit 43.9 % (39.0-53.0) Mean Corpuscular Volume 96 fL (79-100) Mean Corpuscular Hemoglobin 33 pg (25-35) Mean Corpuscular Hemoglobin Concent 34 g/dL (31-37) Red Cell Distribution Width 13.1 % (11.5-14.5) Platelet Count 233 x10^3/uL (140-400) Neutrophils (%) (Auto) 87 % (31-73) Lymphocytes (%) (Auto) 8 % (24-48) Monocytes (%) (Auto) 5 % (0-9) Eosinophils (%) (Auto) 0 % (0-3) Basophils (%) (Auto) 0 % (0-3) Neutrophils # (Auto) 8.6 x10^3/uL (1.8-7.7) Lymphocytes # (Auto) 0.7 x10^3/uL (1.0-4.8) Monocytes # (Auto) 0.5 x10^3/uL (0.0-1.1) Eosinophils # (Auto) 0.0 x10^3/uL (0.0-0.7) Basophils # (Auto) 0.0 x10^3/uL (0.0-0.2) Sodium Level 141 mmol/L (136-145) Potassium Level 4.3 mmol/L (3.5-5.1) Chloride Level 107 mmol/L (98-107) Carbon Dioxide Level 25 mmol/L (21-32) Anion Gap 9 (6-14) Blood Urea Nitrogen 14 mg/dL (8-26) Creatinine 1.0 mg/dL (0.7-1.3) Estimated GFR (Cockcroft-Gault) 75.5 BUN/Creatinine Ratio 14 (6-20) Glucose Level 135 mg/dL (70-99) Calcium Level 8.5 mg/dL (8.5-10.1) Total Bilirubin 0.4 mg/dL (0.2-1.0) Aspartate Amino Transf (AST/SGOT) 35 U/L (15-37) Alanine Aminotransferase (ALT/SGPT) 68 U/L (16-63) Alkaline Phosphatase 98 U/L (46-116) Total Protein 6.8 g/dL (6.4-8.2) Albumin 3.3 g/dL (3.4-5.0) Albumin/Globulin Ratio 0.9 (1.0-1.7) SARS-CoV-2 RNA (EDILSON) Negative (Negative) SARS-CoV-2 Antigen (Rapid) Negative (NEGATIVE) Urine Collection Type Unknown Urine Color Yellow Urine Clarity Clear Urine pH 7.0 (<5.0-8.0) Urine Specific Jennings 1.025 (1.000-1.030) Urine Protein Negative mg/dL (NEG-TRACE) Urine Glucose (UA) Negative mg/dL (NEG) Urine Ketones (Stick) Negative mg/dL (NEG) Urine Blood Negative (NEG) Urine Nitrite Negative (NEG) Urine Bilirubin Negative (NEG) Urine Urobilinogen Dipstick 1.0 mg/dL (0.2 mg/dL) Urine Leukocyte Esterase Negative (NEG) Urine RBC 0 /HPF (0-2) Urine WBC Occ /HPF (0-4) Urine Squamous Epithelial Cells Occ /LPF Urine Bacteria 0 /HPF (0-FEW) Urine Mucus Slight /LPF Urine Opiates Screen Neg (NEG) Urine Methadone Screen Neg (NEG) Urine Barbiturates Neg (NEG) Urine Phencyclidine Screen Neg (NEG) Urine Amphetamine/Methamphetamine Neg (NEG) Urine Benzodiazepines Screen Neg (NEG) Urine Cocaine Screen Neg (NEG) Urine Cannabinoids Screen Neg (NEG) Urine Ethyl Alcohol Neg (NEG) Laboratory Tests Test 09/08/21 22:50 Urine Collection Type Unknown Urine Color Yellow Urine Clarity Clear Urine pH 7.0 (<5.0-8.0) Urine Specific Jennings 1.025 (1.000-1.030) Urine Protein Negative mg/dL (NEG-TRACE) Urine Glucose (UA) Negative mg/dL (NEG) Urine Ketones (Stick) Negative mg/dL (NEG) Urine Blood Negative (NEG) Urine Nitrite Negative (NEG) Urine Bilirubin Negative (NEG) Urine Urobilinogen Dipstick 1.0 mg/dL (0.2 mg/dL) Urine Leukocyte Esterase Negative (NEG) Urine RBC 0 /HPF (0-2) Urine WBC Occ /HPF (0-4) Urine Squamous Epithelial Cells Occ /LPF Urine Bacteria 0 /HPF (0-FEW) Urine Mucus Slight /LPF Urine Opiates Screen Neg (NEG) Urine Methadone Screen Neg (NEG) Urine Barbiturates Neg (NEG) Urine Phencyclidine Screen Neg (NEG) Urine Amphetamine/Methamphetamine Neg (NEG) Urine Benzodiazepines Screen Neg (NEG) Urine Cocaine Screen Neg (NEG) Urine Cannabinoids Screen Neg (NEG) Urine Ethyl Alcohol Neg (NEG) Brief Hospital Course Mr Zhou is a 61-year-old male presented to the emergency department due to 1 day history of dizziness and vertigo-like symptoms. 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 He said he first noticed the dizziness around 9-10 last night. He sleeps in the cabin of his truck. Initially did not think much of the dizziness and just tried to go to bed last night. He said the dizziness persisted most of the night. He however says it was also intermittent and there at times she would feel better and other times he would roll over and feel very dizzy again. Recent having Covid positive on August 22. Repeat COVID 19 testing negative Patient also has left ptosis. Also multiple months of diplopia that has been worsening. He sees an nursery rn at his home and was actually due to follow-up in the next few days. Denying any sort of infectious symptoms including fever or chills. Denies any weakness or numbness. 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 Chest radiograph with no acute abnormalities Symptoms resolved with otolith repositioning via Tangent-Hallpike maneuvering. Nausea improved with as needed meclizine. Discussed with neurology no driving for now should have outpatient testing for myasthenia serology. His daughter is driving from [place] to pick him up. He will be staying in his truck until he makes a flight to [place]. Problem list: Dizziness - secondary to BPPV and likely labyrinthitis Vertigo Diplopia Left eyelid ptosis Active smoker -counseled for 6 minutes on cessation H/o COVID 19 - repeat testing negative. Recovered Transaminitis - likely from recovering COVID 19 Plan: BPPV exercises given. F/u with neurology on d/c, prn meclizine From Neurology plan: "Our hospital policy is against checking myasthenia serology as inpatient, patient will have to have this done in [place] with his neurologist there when he gets one Meclizine as needed, should use no more than 2 or 3 weeks at a time ENT evaluation in [place] as outpatient Okay for discharge He should not drive home, needs to fly home" Greater than 30 minutes spent on d/c home with self care. Discharge Information Condition at Discharge: Improved Follow Up: Weeks (1) Disposition/Orders: D/C to Home Scheduled PRN Meclizine Hcl (Meclizine Hcl) 12.5 Mg Tablet, 12.5 MG PO PRN Q6HRS PRN for DIZZINESS for 10 Days, #24 Prescribed by: JOSE SHEFFIELD MD on 09/09/21 1038 Justicifation of Admission Dx: Justifications for Admission: Justification of Admission Dx: Yes JOSE SHEFFIELD MD Sep 09, 2021 14:53
== END 2021-09-09 15:25 | disposition home or self-care (01) ==
LOC: ER 08:37 → INTOOBSV 11:54 → 5 SOUTH 11:54
PROVIDERS: ADMIT Student in an Organized Health Care Education/Training Program; ATTEND Student in an Organized Health Care Education/Training Program
DX: H53.2 Diplopia (principal); Z20.822 Contact with and (suspected) exposure to COVID-19; H02.402 Unspecified ptosis of left eyelid; R42 Dizziness and giddiness; I10 Essential (primary) hypertension; E78.5 Hyperlipidemia, unspecified; F17.210 Nicotine dependence, cigarettes, uncomplicated; H49.00 Third [oculomotor] nerve palsy, unspecified eye; H83.09 Labyrinthitis, unspecified ear; H93.19 Tinnitus, unspecified ear; R74.01 Elevation of levels of liver transaminase levels; Z23 Encounter for immunization; Z79.899 Other long term (current) drug therapy
CPT/HCPCS: 36415; 70450; 70496; 70498; 70551; 71045; 80053; 80307; 81001; 85025; 87426; 90471; 90686; 93005; 95992; 96372; 96374; 96376; 97161; 99285; G0378; J1644; J2405; J8597; Q9967; U0003; U0005; G0379